=== PATIENT | male | born 1995 | race Two or more races ===

== ENCOUNTER 2016-04-21 12:50 | Emergency (ER) | payer OTHER ==
[2016-04-21 13:16] VITALS: BP 165/73; PULSE 84; RESP 16; TEMP 97.9; O2SAT 97
--- NOTE | 2016-04-21 13:46 | DX ---
Right Knee, 5 Views, at 1:25 p.m. Clinical History: 20-year-old male who fell on ice, and complains of lateral knee pain. Rule out frac ture. Comparison Study: None. Findings: There is a small suprapatellar joint effusion present. Bone mineralization is preserved. Th ere is no acute fracture or dislocation. There is no patellofemoral joint space narrowing or patellar subluxation. There is no loose osteochondral body. Impression: Small suprapatellar joint effusion, with no acute osseous abnormality identified. If there is further clinical concern regarding the patient's knee pain, MR imaging could be considere d.
--- NOTE | 2016-04-21 13:48 | UCPHY ---
H & P Time Seen by Provider: 04/21/16 13:24 Patient Type: New HPI/ROS: CHIEF COMPLAINT: HISTORY OF PRESENT ILLNESS: 20-year-old male in the urgent care via private vehicle complaining of acute right knee pain which occurred 3 days ago when he slipped on ice sustained a valgus stress to his right knee. He has been able to bear weight albeit with assistance of crutches and a knee appreciated brace. Positive subjective instability. No proximal pain or injury. PHYSICAL EXAM (Prior to examination, patient consented to physical exam, hands were washed and my usual and customary physical exam procedures followed) 1) GENERAL: Well-developed, well-nourished, alert and oriented. Appears to be in no acute distress. 2) HEAD: Normocephalic 3) HEENT: Pupils equal, round, reactive to light bilaterally. 4) LUNGS: Breathing comfortably. 5) MUSCULOSKELETAL: Exam of the right knee shows prepatellar soft tissue swelling and effusion. Compartments are soft. Reproducible pain with extremes of flexion. No gross instability 6) SKIN: intact 7) VASCULAR: DP,PT pulses and cap refill present and brisk distally DIFFERENTIAL DIAGNOSIS: in no particular order including but not limited to fracture, sprain, compartment syndrome, septic arthritis, DVT Procedure: Crutches indications for crutch use discussed with patient. Patient fitted for crutches by ER staff. Observed ambulating with crutches. I think the patient has the capacity to safely use crutches. Usual and customary crutch walking precautions provided Procedure: Splint A knee immobilizer splint was applied by ER satellite tv technician. After application of the splint I returned and re-examined the patient. The splint was adequately immobilizing the joint and distal to the splint the patient's circulation and sensation were intact. Patient shows no signs of compartment syndrome. Was given orthopedic precautions. MEDICAL DECISION MAKING Serial evaluations performed on patient. I discussed the limitations of x-ray in diagnosis of knee pain and injury. At this time I do not think that emergent MRI is currently indicated. However, I have recommended follow-up with Orthopedic surgery and provided this referral information. Informed the patient that outpatient MRI may be indicated. Doubt septic arthritis. Doubt compartment syndrome. Doubt DVT. Smoking Status: Never smoked Constitutional: Initial Vital Signs Temperature (C) 36.6 C 04/21/16 13:12 Heart Rate 84 04/21/16 13:12 Respiratory Rate 16 04/21/16 13:12 Blood Pressure 165/73 H 04/21/16 13:12 O2 Sat (%) 97 04/21/16 13:12 O2 Delivery Mode Room Air Allergies/Adverse Reactions: No Known Allergies Allergy (Unverified 04/21/16 13:17) Home Medications: Medication Instructions Recorded Hydrocodone/APAP 5/325 [Energy 1 tab PO Q6 PRN #10 tab 04/21/16 5/325 (RX)] MDM/Departure - MDM Diagnostics: Right Knee, 5 Views, at 1:25 p.m. Clinical History: 20-year-old male who fell on ice, and complains of lateral knee pain. Rule out fracture. Comparison Study: None. Findings: There is a small suprapatellar joint effusion present. Bone mineralization is preserved. There is no acute fracture or dislocation. There is no patellofemoral joint space narrowing or patellar subluxation. There is no loose osteochondral body. Impression: Small suprapatellar joint effusion, with no acute osseous abnormality identified. If there is further clinical concern regarding the patient's knee pain, MR imaging could be considered. Dictated By: Clarence Luna MD Images reviewed by myself - Depart Disposition: Home, Routine, Self-Care Clinical Impression: Sprain of right knee Qualifiers: Encounter type: initial encounter Involved ligament of knee: unspecified ligament Qualifier Code: (S83.91XA) Sprain of unspecified site of right knee, initial encounter Condition: Good Instructions: Knee Sprain (ED) Additional Instructions: Return to the ER immediately if you experience discoloration, have worsening pain, numbness, tingling, or any other symptoms that concern you. If you received x-rays in the emergency department today, be advised, that ligamentous , tendon, muscular, and other non-bony injury cannot be fully ruled out. Try to keep your affected extremity elevated above the level of your chest, and keep cold packs on the affected area, for the next 48 hours. Prescriptions: Hydrocodone/APAP 5/325 [Energy 5/325 (RX)] 1 tab PO Q6 PRN #10 tab PRN Reason: Pain, Severe Referrals: Roni Durán MD [Medical Doctor] - 2-3 days, call for appt. (Dr. Roni Durán is orthopedic surgeon) - PQRS PQRS Measurement: n/a
== END 2016-04-21 14:37 | disposition home or self-care (01) ==
LOC: CED 12:50
DX: S83.91XA Sprain of unspecified site of right knee, initial encounter (principal); W00.0XXA Fall on same level due to ice and snow, initial encounter
CPT/HCPCS: 73564-PO; G0463-PO; L1830

== ENCOUNTER 2016-07-27 23:35 | Emergency (ER) | payer OTHER ==
[2016-07-28] MEDS ORDERED: IBUPROFEN 600 MG TAB PO ONE ×2 (00:26→00:30)
[2016-07-28] MEDS ORDERED: ACETAMINOPHEN 500 MG TAB ONE (00:26)
[2016-07-28] MEDS ORDERED: ACETAMINOPHEN 500 MG TAB PO ONE (00:30)
[2016-07-28] MEDS ORDERED: NS 1,000 ML IV ONE ×2 (00:31)
[2016-07-28 00:57] LABS: % IMMATURE GRANULYOCYTES 0.6 % (0.0-1.1); ADD DIFF? NO; ADD MORPH? NO; ADD SCAN? NO; ATYPICAL LYMPHOCYTE FLAG 30 (0-99); FRAGMENT RBC FLAG 0 (0-99); HEMATOCRIT 47.2 % (40.0-51.0); HEMOGLOBIN 16.9 g/dL (13.7-17.5); LEFT SHIFT FLG 10 (0-99); LIPEMIA HEMOLYSIS FLAG 90 (0-99); MEAN CELL HEMOGLOBIN 33.5 pg (27.9-34.1); MEAN CELL HEMOGLOBIN CONCENTR. 35.8 g/dL (32.4-36.7); MEAN CELL VOLUME 93.7 fL (81.5-99.8); MEAN PLATELET VOLUME 11.2 fL (8.7-11.7); PLATELET CLUMPS FLAG 10 (0-99); PLATELET COUNT 199 10^3/uL (150-400); RED BLOOD CELL COUNT 5.04 10^6/uL (4.40-6.38); RED CELL DISTRIBUTION WIDTH 11.3 % (11.5-15.2)
[2016-07-28 01:01] LABS: ANION GAP 14 mEq/L (8-16); BILIRUBIN,TOTAL 1.2 mg/dL (0.1-1.4); CALCIUM 9.8 mg/dL (8.5-10.4); CARBON DIOXIDE 20 mEq/l (22-31); CHLORIDE 102 mEq/L (97-110); CREATININE 1.2 mg/dL (0.7-1.3); GLOMERULAR FILTRATION RATE > 60; GLUCOSE 108 mg/dL (70-100); POTASSIUM 3.8 mEq/L (3.5-5.2); SODIUM 136 mEq/L (134-144)
[2016-07-28 01:30] LABS: INR 1.02 (0.83-1.16); PROTIME(PATIENT) 13.3 SEC (12.0-15.0)
[2016-07-28 01:31] LABS: APTT 30.9 SEC (23.0-38.0)
--- NOTE | 2016-07-28 01:50 | EDPHY ---
H & P Stated Complaint: fever, sore throat Time Seen by Provider: 07/28/16 00:22 HPI/ROS: CHIEF COMPLAINT: Fever chills body aches HISTORY OF PRESENT ILLNESS: This is a 20-year-old male presenting to the ER complaining of fever chills with sore throat onset last night. Fever of 101.5, with intermittent cough x1 day and intermittent nausea. Denies any vomiting or diarrhea. Patient does report decrease in p.o. intake x1 day. 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 REVIEW OF SYSTEMS: Constitutional: fever, chills. Eyes: No discharge. ENT: sore throat x1 day Cardiovascular: No chest pain, no palpitations. Respiratory: Nonproductive cough, no shortness of breath. Gastrointestinal: No abdominal pain, no vomiting. Nausea no diarrhea Genitourinary: No dysuria Musculoskeletal: No back pain. Skin: No rashes. Neurological: No headache. Source: Patient - Personal History Current Tetanus Diphtheria and Acellular Pertussis (TDAP): Yes - Medical/Surgical History Hx Asthma: No Hx Chronic Respiratory Disease: No Hx Diabetes: No Hx Cardiac Disease: No Hx Renal Disease: No Hx Cirrhosis: No Hx Alcoholism: No Hx HIV/AIDS: No Hx Splenectomy or Spleen Trauma: No Other PMH: PCP Eileen freire. Surg left knee surg Micro fx. FLU Vacc . Tetanus UTD - Social History Smoking Status: Never smoked - Physical Exam Exam: General Appearance: Alert, no distress. Eyes: Pupils equal and round no pallor or injection. ENT, Mouth: Mucous membranes moist. Posterior pharynx and tonsillar Tonsillar erythema no exudate noted. TMs bilateral middle ear effusion non serous Respiratory: There are no retractions, lungs are clear to auscultation. Cardiovascular: Regular rate and rhythm. Gastrointestinal: Abdomen is soft and nontender, no masses, bowel sounds normal. Neurological: No focal deficits Skin: Warm and dry, no rashes. Musculoskeletal: Neck is supple nontender. Extremities: symmetrical, full range of motion. Psychiatric: Patient is oriented X 3, there is no agitation. Constitutional: Initial Vital Signs Temperature (C) 38.6 C H 07/28/16 00:10 Heart Rate 138 H 07/28/16 00:10 Respiratory Rate 20 07/28/16 00:10 Blood Pressure 151/82 H 07/28/16 00:10 O2 Sat (%) 93 07/28/16 00:10 O2 Delivery Mode Room Air Allergies/Adverse Reactions: No Known Allergies Allergy (Unverified 07/28/16 00:09) Home Medications: Medication Instructions Recorded NK [No Known Home Meds] 07/28/16 Medical Decision Making ED Course/Re-evaluation: Discussed the plan of care: IV fluids for dehydration, CBC, BMP, lactate, and chest x-ray 0140: Patient re-evaluated patient states feeling better, laughing, nonlabored respiratory effort tolerating p.o. intake. Patient would like to go home he has finals tomorrow. Discussed following up with primary care or following up at [facility]. Patient agreed with plan 0200: Discharge home--> stable. Differential Diagnosis: Differential diagnosis considered but not limited to pneumonia, influenza and sepsis - Data Points Laboratory Results: Laboratory Results 07/28/16 00:15 07/28/16 00:15 07/28/16 07/28/16 07/28/16 01:48 01:44 00:15 WBC RBC Hgb Hct MCV MCH MCHC RDW Plt Count MPV Neut % (Auto) Lymph % (Auto) [place] % (Auto) Eos % (Auto) Baso % (Auto) Nucleat RBC Rel Count Absolute Neuts (auto) Absolute Lymphs (auto) Absolute Monos (auto) Absolute Eos (auto) Absolute Basos (auto) Absolute Nucleated RBC Immature Gran % Immature Gran # PT INR APTT VBG Lactic Acid 1.2 mmol/L mmol/L (0.7-2.1) Sodium 136 mEq/L mEq/L (134-144) Potassium 3.8 mEq/L mEq/L (3.5-5.2) Chloride 102 mEq/L mEq/L (97-110) Carbon Dioxide 20 mEq/l L mEq/l (22-31) Anion Gap 14 mEq/L mEq/L (8-16) BUN 16 mg/dL mg/dL (7-23) Creatinine 1.2 mg/dL mg/dL (0.7-1.3) Estimated GFR > 60 Glucose 108 mg/dL H mg/dL (70-100) Calcium 9.8 mg/dL mg/dL (8.5-10.4) Total Bilirubin 1.2 mg/dL mg/dL (0.1-1.4) Urine Color PALE YELLOW Urine Appearance CLEAR Urine pH 6.0 (5.0-7.5) Ur Specific [place] 1.010 (1.002-1.030) Urine Protein NEGATIVE (NEGATIVE) Urine Ketones 1+ H (NEGATIVE) Urine Blood 1+ H (NEGATIVE) Urine Nitrate NEGATIVE (NEGATIVE) Urine Bilirubin NEGATIVE (NEGATIVE) Urine Urobilinogen NEGATIVE EU EU (0.2-1.0) Ur Leukocyte Esterase NEGATIVE (NEGATIVE) Urine RBC Pending Urine WBC Pending Ur Epithelial Cells Pending Urine Glucose NEGATIVE (NEGATIVE) 07/28/16 07/28/16 00:15 00:15 WBC 16.66 10^3/uL H 10^3/uL (3.80-9.50) RBC 5.04 10^6/uL 10^6/uL (4.40-6.38) Hgb 16.9 g/dL g/dL (13.7-17.5) Hct 47.2 % % (40.0-51.0) MCV 93.7 fL fL (81.5-99.8) MCH 33.5 pg pg (27.9-34.1) MCHC 35.8 g/dL g/dL (32.4-36.7) RDW 11.3 % L % (11.5-15.2) Plt Count 199 10^3/uL 10^3/uL (150-400) MPV 11.2 fL fL (8.7-11.7) Neut % (Auto) 80.4 % H % (39.3-74.2) Lymph % (Auto) 11.3 % L % (15.0-45.0) Preston % (Auto) 7.4 % % (4.5-13.0) Eos % (Auto) 0.0 % L % (0.6-7.6) Baso % (Auto) 0.3 % % (0.3-1.7) Nucleat RBC Rel Count 0.0 % % (0.0-0.2) Absolute Neuts (auto) 13.39 10^3/uL H 10^3/uL (1.70-6.50) Absolute Lymphs (auto) 1.88 10^3/uL 10^3/uL (1.00-3.00) Absolute Monos (auto) 1.24 10^3/uL H 10^3/uL (0.30-0.80) Absolute Eos (auto) 0.00 10^3/uL L 10^3/uL (0.03-0.40) Absolute Basos (auto) 0.05 10^3/uL 10^3/uL (0.02-0.10) Absolute Nucleated RBC 0.00 10^3/uL 10^3/uL (0-0.01) Immature Gran % 0.6 % % (0.0-1.1) Immature Gran # 0.10 10^3/uL 10^3/uL (0.00-0.10) PT 13.3 SEC SEC (12.0-15.0) INR 1.02 (0.83-1.16) APTT 30.9 SEC SEC (23.0-38.0) VBG Lactic Acid Sodium Potassium Chloride Carbon Dioxide Anion Gap BUN Creatinine Estimated GFR Glucose Calcium Total Bilirubin Urine Color Urine Appearance Urine pH Ur Specific [place] Urine Protein Urine Ketones Urine Blood Urine Nitrate Urine Bilirubin Urine Urobilinogen Ur Leukocyte Esterase Urine RBC Urine WBC Ur Epithelial Cells Urine Glucose Medications Given: Discontinued Medications Acetaminophen (Tylenol) 1,000 mg PO EDNOW ONE Stop: 07/28/16 00:31 Last Admin: 07/28/16 00:34 Dose: 1,000 mg Sodium Chloride (Ns) 1,000 mls @ 0 mls/hr IV ONCE ONE PRN Reason: Wide Open Stop: 07/28/16 00:32 Last Admin: 07/28/16 00:34 Dose: 1,000 mls Sodium Chloride (Ns) 1,000 mls @ 0 mls/hr IV ONCE ONE PRN Reason: Wide Open Stop: 07/28/16 00:32 Last Admin: 07/28/16 00:34 Dose: 1,000 mls Ibuprofen (Motrin) 600 mg PO EDNOW ONE Stop: 07/28/16 00:31 Last Admin: 07/28/16 00:34 Dose: 600 mg Departure - Departure Disposition: Home, Routine, Self-Care Clinical Impression: Viral syndrome, Dehydration fever Acute pharyngitis Qualifiers: Pharyngitis/tonsillitis etiology: other specified organisms Qualified Code(s): J02.8 - Acute pharyngitis due to other specified organisms Condition: Good Instructions: Dehydration (ED), Pharyngitis (ED), Viral Syndrome in Children ( ED) Additional Instructions: Discussed discharge instructions with patient 1. A ibuprofen 600 -800 mg every 6-8 hours. Tylenol 500-1000mg every 6 hours monitor fever 2. Increase fluid intake. Hot tea with lemon and honey, gargle with warm salt water for any sore throat 3. Handwashing to prevent spread of any germs viruses. The no sharing water bottles kitchen utensils until symptoms have resolved 4. Rest, increase fluid intake Referrals: CALLY FREIRE [Other] - As per Instructions KAREN Jarquin,. [Clinic] - As per Instructions
[2016-07-28 01:54] LABS: COLOR PALE YELLOW; LEUKOCYTE ESTERASE,URINE NEGATIVE (NEGATIVE); NITRITE,URINE NEGATIVE (NEGATIVE)
[2016-07-28 02:12] VITALS: BP 124/78; PULSE 98; RESP 18; TEMP 98.1; O2SAT 95
== END 2016-07-28 02:10 | disposition home or self-care (01) ==
DX: B34.9 Viral infection, unspecified (principal); J02.9 Acute pharyngitis, unspecified; E86.0 Dehydration